=== PATIENT | female | born 1990 | race Two or more races ===

== ENCOUNTER 2018-07-14 14:10 | Emergency (ER) | payer OTHER ==
[~2018-07-14] VITALS: Ht 170.2 cm; Wt 118.8 kg
[~2018-07-14 14:10] MED LIST: CEPHALEXIN500 MG ORAL; IBUPROFEN600 MG ORAL
[2018-07-14] MEDS ORDERED: DiphenhydrAMINE 50mg/ml Inj IM ONE (14:30)
[2018-07-14 14:32] VITALS: BP 125/78
[2018-07-14] MEDS ORDERED: PREDNISONE20 MG ORAL (14:36)
[2018-07-14] MEDS ORDERED: DIPHENHYDRAMINE25 M1 ORAL (14:36)
[2018-07-14] MEDS ORDERED: RANITIDINE HCL150 MG ORAL (14:36)
[2018-07-14 14:51] VITALS: BP 125/78
--- NOTE | 2018-07-14 16:06 | Emergency Room Report ---
History of Present Illness General Chief Complaint: Allergic Reaction Source: Patient Present Illness HPI 28-year-old female presents ED for evaluation. Patient states that she is having allergic reaction. Started today after eating a granola mixed with yogurt. [place] scratchiness and tightness in her throat shortly after. Denies any hives or rash. Denies any prior food or drug allergies. Denies any pain. No other aggravating relieving factors. Denies any other associated symptoms Allergies: Uncoded Allergies: OTHER (Allergy, Unknown, 07/14/18) GRANOLA; YOGURT Patient History Past Medical History: none Past Surgical History: none Pertinent Family History: none Social History: Denies: smoking, alcohol use, drug use Last Menstrual Period: 06/11/2018 Now: No Immunizations: UTD Reviewed Nursing Documentation: PMH: Agreed; PSxH: Agreed Nursing Documentation-PMH Past Medical History: No Stated History Review of Systems All Other Systems: negative except mentioned in HPI Physical Exam Vital Signs Date Time Temp Pulse Resp B/P (MAP) Pulse Ox O2 Delivery O2 Flow Rate FiO2 07/14/18 14:18 97.9 77 19 121/76 99 Room Air Sp02 EP Interpretation: reviewed, normal General Appearance: no apparent distress, alert, GCS 15, non-toxic Head: normocephalic Eyes: bilateral eye normal inspection, bilateral eye PERRL ENT: hearing grossly normal, normal pharynx, no angioedema, normal voice, TMs + canals normal, other - no tongue swelling. no stridor Neck: full range of motion, supple/symm/no masses Respiratory: chest non-tender, lungs clear, normal breath sounds, speaking full sentences Cardiovascular #1: normal inspection Gastrointestinal: normal inspection Rectal: deferred Genitourinary: no CVA tenderness Musculoskeletal: normal inspection Neurologic: alert, oriented x3, responsive, motor strength/tone normal, sensory intact, speech normal Psychiatric: normal inspection Skin: normal inspection Lymphatic: normal inspection Medical Decision Making Diagnostic Impression: Primary Impression: Allergic reaction Qualified Codes: T78.40XA - Allergy, unspecified, initial encounter ER Course Hospital Course 28-year-old female presents to ED complaining of throat tightness after eating food. Differential diagnoses include: allergic reaction, angioedema, anaphylaxis Clinical course Patient placed on stretcher. radiation monitor. After initial history, physical exam reveals female in no acute distress. There is no tongue swelling. No stridor. No urticarial rash. Lungs clear. I ordered Benadryl, prednisone, pepicd Upon reassessment patient states he feels better. Discussed findings with patient. We will discharge with prescriptions for Benadryl, prednisone, Zantac. I offered option for EpiPen which patient declined. States she will follow-up with her PMD to be referred to [facility] professor kalyan. I feel this is a highly complex case requiring extensive working including EKG/Rhythm strip, Xray/CT/US, Blood/urine lab work, repeat exams while in ED, and administration of strong opiates/narcotics for pain control, admission to hospital or close patient follow up. Diagnosis - allergic reaction Stable and discharged to home with prescriptions for Zantac, prednisone, Benadryl. Followup with PMD. Return to ED if symptoms recur or worsen Last Vital Signs Date Time Temp Pulse Resp B/P (MAP) Pulse Ox O2 Delivery O2 Flow Rate FiO2 07/14/18 14:51 97.9 88 20 125/78 96 Room Air Status: improved Disposition: HOME, SELF-CARE Condition: Stable Scripts Ranitidine Hcl* (ZANTAC*) 150 Mg Tablet 150 MG ORAL TWICE A DAY for 7 Days, TAB Prov: Milton Sanabria MD 07/14/18 Prednisone* (PREDNISONE*) 20 Mg Tablet 40 MG ORAL DAILY, #10 TAB Prov: Milton Sanabria MD 07/14/18 Diphenhydramine Hcl* (DIPHENHYDRAMINE HCL*) 25 Mg Capsule 25 MG ORAL Q6H PRN for Itching, #30 CAP 0 Refills Prov: Milton Sanabria MD 07/14/18 Referrals: NOT CHOSEN IPA/,REFERRING (PCP) Patient Instructions: Food Allergy, [id number] Milton Sanabria MD Jul 14, 2018 16:06
== END 2018-07-14 14:51 | disposition home or self-care (01) ==
LOC: EMR 14:35
DX: T78.40XA Allergy, unspecified, initial encounter (principal); Z91.018 Allergy to other foods
CPT/HCPCS: 96372; 99283; J1200; J7512